=== PATIENT | male | born 1955 | race Caucasian/White ===

== ENCOUNTER 2018-03-31 13:30 | Outpatient (CLI) | payer BC ==
[2016-04-29 21:34] VITALS: BP 143/71
[2018-03-31 13:46] LABS: BASOPHILS % 0.3 (0.0-1.5); EOSINOPHILS % 3.4 % (0.0-6.8); MEAN CORPUSCULAR HEMOGLOBIN 26.3 pg (28.0-34.0); MEAN CORPUSCULAR VOLUME 87.6 fl (80.0-100.0); MONOCYTES % 6.2 % (0.0-11.0)
[2018-03-31 14:01] LABS: eGFR (African) > 60; eGFR (Non-African) 55
== END 2018-03-31 13:31 ==
LOC: LAB 13:30
PROVIDERS: ATTEND Internal Medicine Cardiovascular Disease
DX: I50.22 Chronic systolic (congestive) heart failure (principal)
CPT/HCPCS: 36415; 80053; 83880; 85025

== ENCOUNTER 2018-08-16 13:13 | Outpatient (CLI) | payer BC ==
[2016-04-29 21:34] VITALS: BP 143/71
[2018-08-16 14:15] LABS: eGFR (Non-African) 51
== END 2018-08-16 13:14 ==
LOC: LAB 13:13
PROVIDERS: ATTEND Internal Medicine Cardiovascular Disease
DX: I50.22 Chronic systolic (congestive) heart failure (principal)
CPT/HCPCS: 36415; 80048

== ENCOUNTER 2019-01-04 13:20 | Outpatient (CLI) | payer BC ==
[2016-04-29 21:34] VITALS: BP 143/71
[2019-01-04 13:47] LABS: APPEARANCE,URINE CLEAR (CLEAR); COLOR,URINE YELLOW (YELLOW); OCCULT BLOOD,URINE TRACE-INTACT (NEGATIVE); UROBILINOGEN URINE 0.2 Eu (0.2-1.0)
== END 2019-01-04 13:22 ==
LOC: LAB 13:20
PROVIDERS: ATTEND Internal Medicine Nephrology
DX: N18.3 Chronic kidney disease, stage 3 (moderate) (principal); R80.9 Proteinuria, unspecified; Z68.36 Body mass index [BMI] 36.0-36.9, adult
CPT/HCPCS: 36415; 80069; 81002

== ENCOUNTER 2019-02-18 13:16 | Outpatient (CLI) | payer BC ==
[2016-04-29 21:34] VITALS: BP 143/71
[2019-02-18 13:50] LABS: eGFR (Non-African) 34
== END 2019-02-18 13:18 ==
LOC: LAB 13:16
PROVIDERS: ATTEND Internal Medicine Cardiovascular Disease
DX: I50.22 Chronic systolic (congestive) heart failure (principal)
CPT/HCPCS: 36415; 80048

== ENCOUNTER 2019-08-29 15:35 | Outpatient (CLI) | payer OTHER ==
[2016-04-29 21:34] VITALS: BP 143/71
[2019-08-29 17:19] LABS: eGFR (Non-African) 22
[2019-08-29 18:01] LABS: APPEARANCE,URINE CLEAR (CLEAR); COLOR,URINE YELLOW (YELLOW); OCCULT BLOOD,URINE TRACE-INTACT (NEGATIVE)
[2019-08-29 18:02] LABS: UROBILINOGEN URINE 0.2 Eu (0.2-1.0)
== END 2019-08-29 15:40 ==
LOC: LAB 15:35
PROVIDERS: ATTEND Internal Medicine Nephrology
DX: N18.3 Chronic kidney disease, stage 3 (moderate) (principal); R80.9 Proteinuria, unspecified; R60.9 Edema, unspecified
CPT/HCPCS: 36415; 80069; 81002

== ENCOUNTER 2019-09-08 13:21 | Outpatient (CLI) | payer OTHER ==
[2016-04-29 21:34] VITALS: BP 143/71
[2019-09-08 14:01] LABS: eGFR (Non-African) 31
== END 2019-09-08 13:26 ==
LOC: LAB 13:21
PROVIDERS: ATTEND Internal Medicine Cardiovascular Disease
DX: I50.22 Chronic systolic (congestive) heart failure (principal)
CPT/HCPCS: 36415; 80048

== ENCOUNTER 2019-09-15 12:57 | Outpatient (CLI) | payer OTHER ==
[2016-04-29 21:34] VITALS: BP 143/71
[2019-09-15 13:58] LABS: eGFR (Non-African) 34
== END 2019-09-15 13:03 ==
LOC: LAB 12:57
PROVIDERS: ATTEND Internal Medicine Cardiovascular Disease
DX: I50.22 Chronic systolic (congestive) heart failure (principal)
CPT/HCPCS: 36415; 80048